=== PATIENT | female | born 1950 | race Caucasian/White ===

== ENCOUNTER 2022-01-01 10:18 | Outpatient (CLI) | payer MEDICARE, OTHER | END 2022-01-01 10:19 | disposition home or self-care (01) | LOC: CSHRAD 10:18 | PROVIDERS: ATTEND Surgery | DX: K21.00 Gastro-esophageal reflux disease with esophagitis, without bleeding (principal); K22.70 Barrett's esophagus without dysplasia; K22.89 Other specified disease of esophagus; K22.2 Esophageal obstruction; K21.9 Gastro-esophageal reflux disease without esophagitis; K30 Functional dyspepsia | CPT/HCPCS: 74246 ==